=== PATIENT | female | born 1970 | race Caucasian/White ===

== ENCOUNTER → 2018-05-30 | Outpatient (CLI) | payer BC ==
[~2018-05-30] MED LIST: METOPROLOL50 MG PO; NO HOME MEDICATIONS
== END ==
LOC: MC.RAD 10:15
DX: Z12.31 Encounter for screening mammogram for malignant neoplasm of breast (principal)

== ENCOUNTER → 2020-05-04 | Outpatient (CLI) | payer BC | LOC: MC.RAD 02-05 09:00 | DX: Z12.31 Encounter for screening mammogram for malignant neoplasm of breast (principal) ==

== ENCOUNTER → 2022-11-02 | Outpatient (CLI) | payer BC | LOC: MC.RAD 08:39 | DX: Z12.31 Encounter for screening mammogram for malignant neoplasm of breast (principal) ==